=== PATIENT | female | born 1945 | race African-American/Black ===

== ENCOUNTER 2025-01-03 13:34 | Emergency (ER) | payer BC, MEDICAID ==
[~2025-01-03] VITALS: Ht 170.2 cm; Wt 65.0 kg
[2025-01-03 13:37] VITALS: TEMP 36.8; O2SAT 99
[2025-01-03] MEDS: SODIUM CHLORIDE 0.9% 500 ML IV ONE (14:30)
[2025-01-03 14:46] LABS: HEMATOCRIT. 34.6 % (36.0-48.0); HEMOGLOBIN. 10.9 g/dL (12.0-16.0); MEAN PLATELET VOLUME 8.9 fl (7.4-10.4); PLATELET 141 x1000/uL (130-400); RED BLOOD CELL COUNT 4.84 mill/uL (4.2-5.4); RED CELL DISTRIBUTION WIDTH 15.0 % (11.6-14.6)
[2025-01-03 15:17] LABS: CREATININE 0.8 mg/dL (0.6-1.0)
[2025-01-03 15:18] LABS: TROPONIN I HIGH SENSITIVITY 8 ng/L (3.0-34); UREA NITROGEN BLOOD 8 mg/dL (9-23)
[2025-01-03 15:19] LABS: ASPARTATE AMINOTRANSFERASE 34 IU/L (<34); BILIRUBIN DIRECT 0.1 mg/dL (<=3.0)
[2025-01-03 15:20] LABS: BILIRUBIN TOTAL 0.5 mg/dL (0.1-1.0); PROTEIN TOTAL 8.1 g/dL (6.0-8.3)
[2025-01-03 15:22] LABS: EOSINOPHILS % MANUAL 8.0 % (0.0-5.0); LYMPHOCYTES % MANUAL 53.0 % (20.0-60.0); MONOCYTES % MANUAL 13.0 % (2.0-8.0); NEUTROPHILS % MANUAL 26.0 % (45.0-75.0); PLATELET ESTIMATE NORMAL
[2025-01-03 16:22] VITALS: BP 131/56; PULSE 68; RESP 22; O2SAT 99
== END 2025-01-03 16:25 | disposition home or self-care (01) ==
LOC: ER 14:16
DX: R55 Syncope and collapse (principal); R53.1 Weakness; I10 Essential (primary) hypertension; Z86.73 Personal history of transient ischemic attack (TIA), and cerebral infarction without residual deficits; Z79.899 Other long term (current) drug therapy; Z88.2 Allergy status to sulfonamides
CPT/HCPCS: 99284; 80076; 80048; 83735; 85025; 84484; 36415; 93005; J7030